=== PATIENT | male | born 1990 | race Caucasian/White ===

== ENCOUNTER 2016-07-30 17:45 | Emergency (ER) | payer OTHER ==
[~2016-07-30] VITALS: Ht 180.3 cm; Wt 79.4 kg
[~2016-07-30 17:45] MED LIST: ALPRAZOLAM0.5 M4 PO; BELSOMRA PO; BUSPIRONE HCL10 M1 PO; DEXTROAMP-AMPHE20 MG PO; PERCOCET 10-321 EACH PO; PROPRANOLOL HCL10 M1; ULTRAM50 M1 PO
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
[2016-07-30] MEDS ORDERED: TRAMADOL HCL50 M1 PO (20:45)
[2016-07-30] MEDS ORDERED: SOMA250 M1 PO (20:45)
[2016-07-30 20:53] VITALS: BP 120/66
== END 2016-07-30 20:52 ==
LOC: ERH 17:45
DX: M54.5 Low back pain (principal); R10.30 Lower abdominal pain, unspecified; M54.2 Cervicalgia; M79.604 Pain in right leg; M79.645 Pain in left finger(s); V49.40XA Driver injured in collision with unspecified motor vehicles in traffic accident, initial encounter
CPT/HCPCS: 73130-LT; 74176